=== PATIENT | male | born 1990 | race Caucasian/White ===

== ENCOUNTER 2019-12-08 14:37 | Emergency (ER) | payer SELFPAY ==
[2019-12-08 14:39] VITALS: BP 151/78; PULSE 70; RESP 14; TEMP 36.9; O2SAT 97
[2019-12-08 16:25] VITALS: BP 118/73; PULSE 84; RESP 16; O2SAT 93
[2019-12-08 16:50] VITALS: BP 118/73
--- NOTE | 2019-12-08 21:06 | ED_ITS ---
HPI - Eye Problem <RENAE Da Silva - Last Filed: 12/08/19 22:00> General Chief complaint: Eye Problems Stated complaint: RIGHT EYE SWOLLEN FROM COUGHING Time Seen by Provider: 12/08/19 15:28 Source: patient Mode of arrival: Ambulatory Limitations: no limitations History of Present Illness HPI Narrative: This is a 29-year-old male, smoker for cigarette and pot, who presents to ED with significant other with right eye subconjunctival hemorrhage from excessive cough and mild discomfort with blinking of affected eye and has been frequently rubbing his eye eye. Patient reports he has been coughing last 2-3 weeks and reports occasional productive cough ranging from white to green color mucus. Patient denies fever, malaise, fatigue, chest pain, chills. Patient reports associated nasal congestion and hoarse voice. Patient has history of childhood asthma and he is no longer use albuterol inhaler at this time and otherwise healthy. Patient denies any recent foreign travel. Related Data Previous Rx's Medication Instructions Recorded albuterol sulfate 2 puff INHALATION Q4-6H PRN #8.5 12/08/19 gram prednisone 20 mg PO BID 5 Days #10 tab 12/08/19 Allergies Allergy/AdvReac Type Severity Reaction Status Date / Time No Known Drug Allergies Allergy Verified 12/08/19 14:43 Review of Systems <RENAE Da Silva - Last Filed: 12/08/19 22:00> Review of Systems Narrative: General: Denies fever, chills, fatigue, malaise, sweats. HEENT: Denies sinus pain, ear pain, sore throat, difficulty swallowing, dizziness. Reports nasal congestion, hoarse voice, bleeding on white part of right eye. Respiratory: See HPI Cardiovascular: Denies chest pain, palpitations, orthopnea, edema. Gastrointestinal: Denies nausea, vomiting, abdominal pain, diarrhea, constipation, melena. : Denies dysuria, frequency, incontinence, hematuria, urinary retention. Musculoskeletal: Denies weakness, joint pain or bony pain. Skin: Denies rash, skin lesions, or other. Neurologic: Denies weakness, headache, numbness, change in speech, confusion, seizures, incoordination. Psychiatric: No concerning psychosocial issues. 12-point review of systems is negative except for those stated above. Patient History <RENAE Da Silva - Last Filed: 12/08/19 22:00> Medical History Asthma (Acute) Social History Smoking Status: Current every day smoker Smoking Status: Current every day smoker tobacco type: cigarettes alcohol intake frequency: 3 or more drinks per day Substance Use Type: marijuana Exam <RENAE Da Silva - Last Filed: 12/08/19 22:00> Narrative Exam Narrative: GEN: Alert, oriented x 3, well appearing and nourished, and in no acute distress. Head: Normal cephalic, atraumatic. No scalp or temporal tenderness, palpable mass or rash. EYES: Pupils are equal, round, and reactive to light and accommodation. Extraocular muscles are intact bilaterally. There is subconjunctival hemorrhage R lateral aspect and R upper and lower eyelid swelling without exudate and sclera non-icteric. ENT: Bilateral auditory canals and tympanic membranes clear. Hearing grossly intact. Nose without bleeding, purulent discharge or deviation. Facial sinuses nontender to palpate. Mucous membrane moist, no mucosal lesion. Throat without erythema, tonsillar hypertrophy or exudate. Hoarse voice. Uvula in midline, airway patent. Neck: Trachea in midline. No JVD, non-tender without lymphadenopathy. No masses or thyroid megaly. Supple, non-tender and no meningeal signs. CARDIAC: Normal regular rate and rhythm without murmurs, gallops, or rubs. No chest wall tenderness. No peripheral edema, cyanosis or pallor. Capillary refill is less than 2 seconds. RESPIRATORY: Lungs are clear to auscultate bilaterally. Mild intermittent cough witnessed. No wheezes, rales, or rhonchi. No stridor, respiratory distress, increase work of breathing, or accessary muscle used. ABD: Abdomen soft, nontender and non-distended. No guarding or rebound tenderness to palpate. Bowel sounds are normal in all 4 quadrants. There is no palpable masses or organomegaly. EXT: Full painless ROM of all extremities with no loss of sensation, strength, effusion or edema. SKIN: Warm, dry, normal color for patient. No erythema, lesions or rash over visible areas. BACK: Nontender without deformity or crepitance. No flank tenderness. NEUROLOGICAL: Alert and oriented to place, time and person. Sensation and motor function intact bilaterally. No facial droops, dysphasia. PSYCHIATRIC: Good judgement and reason, without hallucinations, abnormal affect or abnormal behaviors during the examination. Initial Vital Signs Initial Vital Signs: Vital Signs Temperature 98.4 F 12/08/19 14:39 Pulse Rate 70 12/08/19 14:39 Respiratory Rate 14 12/08/19 14:39 Blood Pressure 151/78 H 12/08/19 14:39 Pulse Oximetry 97 12/08/19 14:39 <George Ferris DO - Last Filed: 12/09/19 07:35> Initial Vital Signs Initial Vital Signs: Vital Signs Temperature 98.4 F 12/08/19 14:39 Pulse Rate 70 12/08/19 14:39 Respiratory Rate 14 12/08/19 14:39 Blood Pressure 151/78 H 12/08/19 14:39 Pulse Oximetry 97 12/08/19 14:39 Scores <RENAE Da Silva - Last Filed: 12/08/19 22:00> GCS [place] coma scale eye opening: Spontaneous [place] coma scale verbal response: Orientated [place] coma scale motor response: Obey commands [place] coma scale total score: 15 Course <RENAE Da Silva - Last Filed: 12/08/19 22:00> Vital Signs Vital signs: Vital Signs - 8 hr 12/08/19 14:39 12/08/19 16:25 12/08/19 16:50 Temperature 98.4 F Pulse Rate 70 84 Respiratory Rate 14 16 Blood Pressure 151/78 H 118/73 Blood Pressure [Right Arm] 118/73 Pulse Oximetry 97 93 <George Ferris DO - Last Filed: 12/09/19 07:35> Vital Signs Vital signs: Vital Signs - 8 hr 12/08/19 14:39 12/08/19 16:25 12/08/19 16:50 Temperature 98.4 F Pulse Rate 70 84 Respiratory Rate 14 16 Blood Pressure 151/78 H 118/73 Blood Pressure [Right Arm] 118/73 Pulse Oximetry 97 93 MDM - Eye Problem <RENAE Da Silva - Last Filed: 12/08/19 22:00> Differential Diagnosis Differential diagnosis: Likely subconjunctival hemorrhage and other (Bronchitis, URI, pneumonia) Medical Records Attestation: I reviewed the patient's medical records. MDM Narrative Medical decision making narrative: Physical exam is consistent with subconju nctival hemorrhage on right lateral eye likely due to frequent coughing. Patient denies vision changes. OD 20/20 and OS 20/25. Patient advised not to rub his eyes frequently since this can cause increasing irritation to his eyelids and advised to use cool pack for swelling and discomfort. Patient assured this should resolve in about 2 weeks or so and is not interfering with his vision. Patient's lung sounds are clear without obvious wheezing and crackles or increased work of breathing. Patient's respiration is 14 and O2 sat is from 93-97% in room air without fever and stable vital signs. Considered pneumonia or bacterial bronchitis but his physical finding is not consistent with these. Patient was discharged to home with 5 day course of prednisone and albuterol inhaler for as needed use. Strict return precautions were discussed with patient and advised to take [id number] Tylenol, Mucinex, honey, for discomfort and cough. Patient advised to quit smoking especially when his ill from URI or bronchitis. Patient verbalized understanding and agrees with treatment plan. Discharge Plan Departure Patient Disposition: Home Clinical Impression: Bronchitis Subconjunctival hemorrhage Qualifiers: Laterality: right Qualified Code(s): H11.31 - Conjunctival hemorrhage, right eye Discharge Date/Time: 12/08/19 16:50 Instructions: DI for Acute Bronchitis, DI for Subconjunctival Hemorrhage Activity Restrictions/Additional Instructions: You have been diagnosed with [subconjunctival hemorrhage and bronchitis. Please avoid smoking especially while you're ill with cough. ]. What to do: *Take your medications as directed. You can take prednisone 2 tabs daily for next 5 days to help with her cough. Albuterol inhaler 2 puffs every 4-6 hours as needed for frequent cough, short of breath, chest tightness. This medication has been transmitted to [facility] in [place]. You can also cook pickled meat [id number] Mucinex for your cold/cough symptoms and Tylenol as needed for discomfort. You can use cool pack on affected eye to help with discomfort. Avoid Motrin/NSAIDS products. *Follow up with your primary care provider in 2-3 days, call for an appointment. Let them know you were seen in the ED and that we asked you to be seen in follow up. *Return to ED if you have any new, worsening, or concerning symptoms, such as [chest pain, fever, breathing difficulty, pain, unable to tolerate fluids, or any acute concerns]. Prescriptions: New prednisone 20 mg tablet 20 mg PO BID 5 Days Qty: 10 RF: 0 albuterol sulfate 90 mcg/actuation HFA aerosol inhaler 2 puff INHALATION Q4-6H PRN (Reason: cough, sob, ) Qty: 8.5 RF: 0 Referrals: [facility] [Outside] <George Ferris, DO - Last Filed: 12/09/19 07:35> Sign Out Provider Sign Out Attestation: Dr Ferris Co-Sign Statement: I was available for consultation during this patient's emergency department visit. This chart is signed by myself for administrative purposes only. I did not have direct contact with this patient during this visit. They were seen independently by the APC.
== END 2019-12-08 16:50 | disposition home or self-care (01) ==
PROVIDERS: Emergency Provider Nurse Practitioner Family
DX: J40 Bronchitis, not specified as acute or chronic (principal); H11.31 Conjunctival hemorrhage, right eye
CPT/HCPCS: 99282; 99283

== ENCOUNTER 2022-01-07 12:52 | Emergency (ER) | payer OTHER, SELFPAY ==
[2022-01-07 12:56] VITALS: BP 157/84; PULSE 105; RESP 18; TEMP 36.3; O2SAT 98; BMI 28.2
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
[2022-01-07 15:16] VITALS: BP 125/79; PULSE 92; RESP 16; O2SAT 99
== END 2022-01-07 15:17 | disposition home or self-care (01) ==
PROVIDERS: Emergency Provider Nurse Practitioner Critical Care Medicine; PCP Physician Assistant Medical
DX: M25.461 Effusion, right knee (principal); F17.210 Nicotine dependence, cigarettes, uncomplicated
CPT/HCPCS: 73562; 99283